=== PATIENT | female | born 2000 | race Caucasian/White ===

== ENCOUNTER 2019-04-04 07:33 | Outpatient (CLI) | payer OTHER ==
--- NOTE | 2019-04-04 08:30 | ULT ---
TRANSVAGINAL PELVIC ULTRASOUND WITH HOANG SCALE AND COLOR FLOW AND SPECTRAL DOPPLER IMAGING: HISTORY: A 18-year-old female with menorrhagia with irregular cycle. FINDINGS: The uterus measures 8.2 x 3.3 x 4 cm without focal mass or endometrial fluid. The endometrium measur es 9 mm in thickness. The right ovary measures 3.6 x 2.5 x 2.2 cm and the left ovary measures 3.2 x 2.2 x 2.3 cm. No adnex al mass or endometrial fluid is seen. Flow is demonstrated to both ovaries. No free fluid is seen i n the cul-de-sac. IMPRESSION: Unremarkable exam. POS: OFF
== END 2019-04-04 07:34 | disposition home or self-care (01) ==
LOC: SCSULT 07:33
PROVIDERS: ATTEND Family Medicine
DX: N92.0 Excessive and frequent menstruation with regular cycle (principal)
CPT/HCPCS: 76856

== ENCOUNTER 2020-08-16 15:14 | Emergency (ER) | payer OTHER ==
[2020-08-16] MEDS ORDERED: Acetaminophen 500 MG TAB ONE (17:34)
== END 2020-08-16 17:38 | disposition home or self-care (01) ==
LOC: ERS 15:14
DX: S16.1XXA Strain of muscle, fascia and tendon at neck level, initial encounter (principal); V89.2XXA Person injured in unspecified motor-vehicle accident, traffic, initial encounter
CPT/HCPCS: 72125